=== PATIENT | female | born 1980 | race Caucasian/White ===

== ENCOUNTER 2017-03-13 09:04 | Outpatient (CLI) | payer OTHER ==
--- NOTE | 2017-03-13 10:31 | Ultrasound Report ---
EXAM: ABDOMEN ULTRASOUND LIMITED, RUQ EXAM DATE: 03/13/2017 10:22 AM. CLINICAL HISTORY: RUQ,HEPATOMEGALY, NOT ELSEWHERE CLASSIFIED. COMPARISON: None. TECHNIQUE: Real-time scanning was performed with static images obtained. FINDINGS: Liver: Normal in size and echotexture. Anechoic cyst with imperceptible wall beneath the left hepatic lobe posterior capsule measures 6 x 4 x 4 mm. 15.1 cm. Main portal vein flow: Hepatopetal. Gallbladder: Normal. No stones, wall thickening, or sonographic Wing's sign. Biliary System: CBD measures 3 mm. No intrahepatic or extrahepatic ductal dilatation. Other: None. IMPRESSION: Subcentimeter left hepatic lobe cyst. Otherwise unremarkable. [facility] Referring Provider Line: [phone] SITE ID: [id number]
== END 2017-03-13 09:05 | disposition home or self-care (01) ==
LOC: DI 09:04
PROVIDERS: ATTEND Physician Assistant
DX: K76.89 Other specified diseases of liver (principal)
CPT/HCPCS: 76705

== ENCOUNTER 2017-05-21 07:42 | Outpatient (CLI) | payer OTHER ==
--- NOTE | 2017-05-21 11:06 | Ultrasound Report ---
DATE OF SERVICE: 05/21/2017 COMPLETE ABDOMINAL ULTRASOUND: 05/21/2017 CLINICAL INDICATION: Palpable abnormality periumbilical region. TECHNIQUE: Real-time scanning was performed with [employer] sales representative static images obtained. FINDINGS: The liver measures 15.4 cm. An 8 mm cyst is incidentally noted in the left lobe. No solid liver lesion or intrahepatic biliary dilatation is present. The common bile duct measures 3 mm. The gallbladder is normal, as is the pancreas. The right kidney measures 10.8 cm, and demonstrates normal cortical echotexture. The left kidney measures 10.5 cm, and demonstrates a possible nonobstructing 5 mm calculus. No hydronephrosis or focal parenchymal lesion is identified. The spleen measures 9.2 cm, and demonstrates normal echotexture. The abdominal aorta is normal in caliber throughout. The inferior vena cava is unremarkable. Scanning of the region of palpable abnormality identified by the patient in the periumbilical anterior abdominal wall demonstrates no focal abnormality. No hernia is identified. IMPRESSION: POSSIBLE NONOBSTRUCTING 5 MM LEFT RENAL CALCULUS. NO EVIDENCE OF HERNIA OR ANTERIOR ABDOMINAL WALL MASS AT THE SITE OF PALPABLE ABNORMALITY IDENTIFIED BY THE PATIENT. TD: 05/21/2017 12:04
== END 2017-05-21 07:43 | disposition home or self-care (01) ==
LOC: DI 07:42
PROVIDERS: ATTEND Physician Assistant Medical
DX: R19.05 Periumbilic swelling, mass or lump (principal)
CPT/HCPCS: 76700

== ENCOUNTER 2019-10-24 09:10 | Outpatient (CLI) | payer OTHER ==
[2019-10-24] MEDS ORDERED: ALBUTEROL 1 PUFF INH SCH (12:00)
== END 2019-10-24 09:11 | disposition home or self-care (01) ==
LOC: RT 09:10
PROVIDERS: ATTEND Physician Assistant Medical
DX: R06.00 Dyspnea, unspecified (principal); R07.89 Other chest pain; Z87.891 Personal history of nicotine dependence
CPT/HCPCS: 94060; 94664

== ENCOUNTER 2019-11-09 07:56 | Outpatient (CLI) | payer OTHER ==
--- NOTE | 2019-11-09 10:16 | CARDIAC PROCEDURE NOTE ---
DATE OF SERVICE: 11/09/2019 Physician: Chelsy Reece MD, [facility] INDICATION 1. Chest pain. 2. Dyspnea on exertion. CARDIAC RISK FACTORS 1. Recent ex-smoker (quit 1-1/2 years ago). 2. Family history of heart disease. DESCRIPTION OF PROCEDURE: After signing informed consent, patient underwent a Daniel-protocol treadmill stress test. No imaging was ordered with this test. RESTING HEART RATE: 71. PEAK HEART RATE: 162 (90% predicted maximum heart rate for age). RESTING BLOOD PRESSURE: 106/56. PEAK BLOOD PRESSURE: 164/67. Patient exercised for 9 minutes on a Daniel-protocol treadmill stress test. She achieved a peak heart rate of 162 (90% PMHR) and 10.2 METS. Patient had mild shortness of breath. No chest pressure developed during exercise or in recovery. Oxygen saturation was 97-99% on room air throughout the entire test. Patient rated her perceived exertion at 15/20 on the Lucy scale, at peak. RESTING EKG: Normal sinus rhythm, left atrial enlargement, RSR' in V1. EKG AT PEAK: Nonspecific upsloping ST segment depressions inferolaterally. SUMMARY 1. Abnormal resting EKG; consider cor pulmonale. 2. No significant changes in ST segments or T waves occur with exercise, to suggest ischemia. 3. Good exercise tolerance. 4. No imaging was ordered with this test. 5. This patient's cardiac risk based on all the above: Low. cc: Rafaela Sanchez PA-C TD: 11/09/2019 10:09 [facility]ENTERJeremy
== END 2019-11-09 07:57 | disposition home or self-care (01) ==
LOC: DI 07:56
PROVIDERS: ATTEND Physician Assistant Medical
DX: R07.89 Other chest pain (principal); R06.09 Other forms of dyspnea; Z87.891 Personal history of nicotine dependence; Z82.49 Family history of ischemic heart disease and other diseases of the circulatory system; R94.31 Abnormal electrocardiogram [ECG] [EKG]
CPT/HCPCS: 93017

== ENCOUNTER 2019-11-15 13:11 | Outpatient (CLI) | payer OTHER | END 2019-11-15 13:12 | disposition home or self-care (01) | LOC: DI 13:11 | PROVIDERS: ATTEND Physician Assistant Medical | DX: R94.31 Abnormal electrocardiogram [ECG] [EKG] (principal); J44.9 Chronic obstructive pulmonary disease, unspecified | CPT/HCPCS: 93306 ==

== ENCOUNTER 2019-11-15 13:12 | Outpatient (CLI) | payer OTHER ==
--- NOTE | 2019-11-16 11:39 | Mammography Report ---
BILATERAL DIGITAL SCREENING MAMMOGRAM 3D/2D: 11/15/2019 CLINICAL: Baseline exam. Routine screening. No prior exams were available for comparison. The tissue of both breasts is heterogeneously dense. T his may lower the sensitivity of mammography. No significant masses, calcifications, or other findings are seen in either breast. IMPRESSION: NEGATIVE There is no mammographic evidence of malignancy. A 1 year screening mammogram is recommended. This exam was interpreted at Station ID: [id number]. NOTE: For mammograms, a report in lay terms will be sent to the patient. Approximately 15% of breast malignancies will not be visualized mammographically. In the management of a palpable breast mass, a negative mammogram must not discourage biopsy of a clinically suspicious lesion. Electronically Signed By: Audi [email or web address]/[email or web address]:11/15/2019 18:04:09 ACR BI-RADS Category 1: Negative 3341F PARENCHYMAL PATTERN: (D) - The breast(s) demonstrate(s) heterogeneously dense fibroglandular adams arrington. BI-RADS CATEGORY: (1) - 1 RECOMMENDATION: (ANNUAL) - Recommend routine annual screening mammography. [id number] 1 year screening LATERALITY: (B)
== END 2019-11-15 13:13 | disposition home or self-care (01) ==
LOC: DI 13:12
PROVIDERS: ATTEND Physician Assistant Medical
DX: Z12.31 Encounter for screening mammogram for malignant neoplasm of breast (principal)
CPT/HCPCS: 77063; 77067

== ENCOUNTER 2020-05-21 07:00 | Outpatient (CLI) | payer OTHER ==
[2020-05-21 16:38] LABS: BASOPHILS # (AUTO) 0.1 10^3/uL (0.0-0.1); BASOPHILS % (AUTO) 0.7 %; EOSINOPHILS # (AUTO) 0.2 10^3/uL (0.0-0.7); EOSINOPHILS % (AUTO) 3.5 %; HGB - HEMOGLOBIN 12.3 g/dL (12.0-16.0); LYMPHOCYTES # (AUTO) 1.9 10^3/uL (1.5-3.5); LYMPHOCYTES % (AUTO) 27.6 %; MEAN CORPUSCULAR HEMOGLOBIN 31.8 pg (27.0-31.0); MEAN CORPUSCULAR VOLUME 96.4 fL (81.0-99.0); MEAN PLATELET VOLUME 9.9 fL (7.9-10.8); MONOCYTES # (AUTO) 0.4 10^3/uL (0.0-1.0); MONOCYTES % (AUTO) 6.5 %; NEUTROPHILS # (AUTO) 4.2 10^3/uL (1.5-6.6); NEUTROPHILS % (AUTO) 61.4 %; PLT - PLATELET COUNT 236 10^3/uL (130-450); RED BLOOD COUNT 3.87 10^6/uL (4.20-5.40); RED CELL DISTRIBUTION WIDTH 11.5 % (12.0-15.0); WHITE BLOOD COUNT 6.8 x10^3/uL (4.8-10.8)
[2020-05-21 16:50] LABS: ALBUMIN 4.4 g/dL (3.2-5.5); BILIRUBIN,TOTAL 0.6 mg/dL (0.2-1.0); CREATININE 0.7 mg/dL (0.4-1.0); TOTAL PROTEIN 6.6 g/dL (6.7-8.2)
== END 2020-05-21 23:59 | disposition home or self-care (01) ==
LOC: LAB 07:00
PROVIDERS: ATTEND Physician Assistant
DX: R10.13 Epigastric pain (principal); R19.7 Diarrhea, unspecified; R53.83 Other fatigue
CPT/HCPCS: 36415; 80053; 83690; 85025

== ENCOUNTER 2020-08-10 07:00 | Outpatient (CLI) | payer OTHER ==
[2020-08-10 14:04] LABS: FECAL OCCULT BLOOD (FIT) POSITIVE (NEGATIVE)
== END 2020-08-10 23:59 | disposition home or self-care (01) ==
LOC: LAB.R 07:00
PROVIDERS: ATTEND Physician Assistant
DX: R10.13 Epigastric pain (principal); R19.7 Diarrhea, unspecified; R53.83 Other fatigue
CPT/HCPCS: 82274

== ENCOUNTER 2020-08-14 08:51 | Outpatient (CLI) | payer OTHER ==
--- NOTE | 2020-08-14 09:29 | XRAY Report ---
PROCEDURE: Knee 3 View LT INDICATIONS: L KNEE PAIN TECHNIQUE: 3 views of the left knee(s) were acquired. COMPARISON: None. FINDINGS: Bones: No fractures or dislocations. No suspicious bony lesions. There is no patella subluxation. Soft tissues: No joint effusion. No suspicious soft tissue calcifications. IMPRESSION: Unremarkable radiographic examination of left knee. Reviewed by: Earnest Mathew MD on 08/14/2020 8:28 AM MYRA Approved by: Earnest Mathew MD on 08/14/2020 8:28 AM AKSCOOTER Station ID: [id number]
== END 2020-08-14 08:52 | disposition home or self-care (01) ==
LOC: DI 08:51
PROVIDERS: ATTEND Physician Assistant Medical
DX: M25.562 Pain in left knee (principal)